=== PATIENT | male | born 1980 | race Caucasian/White ===

== ENCOUNTER → 2021-05-01 | Outpatient (CLI) | payer OTHER ==
[~2021-05-01] MED LIST: ACET500T68 PO; BUSP5TAB PO; BUTA1CAP57 PO; GABA-585 PO; IBUP200T44 PO; INDO25CA21 PO; PANT40TA77 PO; QUET25TA5 PO; TIZA4TAB8 PO
--- NOTE | 2021-05-01 13:06 | PDOC1 ---
INITIAL PAIN CONSULT DATE OF SERVICE: DOS: DATE: 05/01/21 TIME: 13:00 CHIEF COMPLAINT: Chief Complaint: Low back and bilateral lower extremity pain HISTORY OF PRESENT ILLNESS: 40-year-old male presents history of pain low back for multiple years since about [id number] active duty in [place]. Patient reports multiple injuries over time as well as previous sports activities and martial arts patient reports it wakes him from sleep and about 2-3 times a night does not affect his bowel bladder control does affect his go to walk significantly patient ports pain across the low back and some into the posterior gluteus bilaterally and some shooting pain occasionally in the right greater than left leg but only occasionally patient has had previous treatment in [place] with epidural inj ections trigger point injections chiropractic treatment exercise as well as Marinol Zanaflex gabapentin and Percocet all of which do decrease the pain fairly significantly and has had radiofrequency ablation about 6 to 7 months ago which has been the most successful modality decreasing his pain at this point. Patient rates his disability rating 0-10 10 me the worst as 7 with family home responsibilities and social activity 8 with recreation occupation and sexual behavior for self-care normal life support activities. Patient cries pain is throbbing shooting across the back sharp constant gets worse as the day goes on he is on his feet more better with sitting or resting but again is waking her from sleep 2-3 times a night. Patient is not had any diagnostic studies within the last year and no information was sent with the patient regarding his condition officially at time of dictation. PAST MEDICAL HISTORY: PMH: Hypertension, hearing loss, arthritis, irritable bowel syndrome, depression PREVIOUS SURGERIES: Past Surgical Hx: Right biceps tendon repair, wisdom teeth extraction CURRENT MEDICATIONS: Current Meds: Active Scripts Medications Dose Route/Sig Max Daily Dose Days Date Category Dose Instructions Pantoprazole Sodium (Pantoprazole Sodium) 40 Mg Tablet. 40 Mg PO DAILYAC 05/01/21 Reported Seroquel (Quetiapine Fumarate) 25 Mg Tablet 1 Tab PO QHS 05/01/21 Reported [id number] (Butalb/Acetaminophen/Caffeine) 1 Each Capsule 1 Each PO BID PRN 05/01/21 Reported Indomethacin 25 Mg Capsule 1 Cap PO BID PRN 10 05/01/21 Reported with food Buspirone Hcl 5 Mg Tablet 1 Tab PO BID 05/01/21 Reported Gabapentin (Gabapentin) 100 Mg Capsule 100 Mg PO TID 05/01/21 Reported Zanaflex (Tizanidine Hcl) 4 Mg Tablet 1 Tab PO BID 30 05/01/21 Reported Acetaminophen 500 Mg Tablet 1 Tab PO TID 05/01/21 Reported Motrin Ib (Ibuprofen) 200 Mg Tablet 600 Mg PO Q6H 05/01/21 Reported ALLERGIES; Allergies: Coded Allergies: No Known Drug Allergies (Unverified , 05/01/21) FAMILY HISTORY: Family Hx: Cancer, diabetes SOCIAL HISTORY: Social Hx: Patient is under alcohol does not smoke says any illegal illicit or recreational drugs is 3 children living at home patient is currently active duty and in custody. REVIEW OF SYSTEMS: ROS: Positive for those items mentioned in history of present illness, all systems are reviewed, otherwise negative ,and are complete full and well-documented on patient's chart. PHYSICAL EXAM: VS: Blood pressure is 139/103 pulse 57 respirations 16 temperature 90.1 F height is 6 foot 3 inches weight is 306 pounds PE: PHYSICAL EXAMINATION: GENERAL: The patient is awake, alert, oriented, appropriate, very pleasant in demeanor HEENT: Shows normocephalic, atraumatic. Extraocular movements are intact and symmetrical. Oral cavity: Mucous membranes moist and pink. Dentition is intact. NECK: Shows anterior throat supple without palpable lymphadenopathy noted. Swallow reflex symmetrical. CHEST: Shows normal on inspection. Breath sounds are clear bilaterally, distant no rales rhonchi or wheezes auscultated. HEART: Shows S1, S2 clear. No murmurs auscultated. ABDOMEN: Soft, nontender, nondistended, obese. No palpable organomegaly is noted. No rebound or guarding demonstrated. BACK: Shows spine grossly in the midline. Normal-appearing cervical lordotic curvature. There is slightly increased thoracic kyphosis, some minor flattening of the lumbar lordotic curvature. Lumbar paraspinous muscles show symmetrical on inspection, on palpation shows some moderate tenderness diffusely throughout the upper, middle and lower distribution of the paraspinous muscles bilaterally and also into the lower thoracic paraspinous musculature, firm and tender, but without specific trigger points, without radiation of pain. The patient has g ood rotational motion of the lumbar spine, both laterally as well as extension and flexion with moderate tenderness with extension and right greater than left lateral rotation but not with forward flexion. No tenderness over the spinous processes, sacrum or sacroiliac regions. EXTREMITIES: Lower extremities show deep tendon reflexes 2 in the patellar and tendo calcaneus tendons. Motor exam is 4 on a scale of 5 with right dorsiflexion, extension, quadriceps and hamstring flexion and 5/5 on the left. Peripheral pulses are 1 posterior tibial. No peripheral edema is noted bilaterally. Lower extremities are warm and dry to touch, equal in color and appearance. SKIN: Shows warm and dry, good turgor. No edema. No sores, rashes or bruising throughout. IMPRESSION: Impression: 40-year-old male with long history low back pain right greater than left. Previous treatment with physical therapy, chiropractic, exercise and good success with radiofrequency ablation bilateral lumbar facet medial branches. Plan: Options discussed with patient including conservative management continued physical therapies and interventional techniques. Patient elects interventional techniques as he did very well with radiofrequency ablation in the past week we will preauthorize patient for radiofrequency ablation and or diagnostic facet medial branch blocks prior to this depending on patient's insurance requirements. Also, will make recommendations for increasing gabapentin to 300 mg 3 times daily and patient would like to be placed back on his Marinol if that is available at his current installation. DANIAL BEAL MD May 01, 2021 13:06
== END | disposition home or self-care (01) ==
LOC: EEVIPCON 08:00 → PNCL 08:40
PROVIDERS: ATTEND Anesthesiology
DX: M54.50 Low back pain, unspecified (principal); M79.605 Pain in left leg; M79.604 Pain in right leg; Z79.899 Other long term (current) drug therapy
CPT/HCPCS: 99205; G0463